=== PATIENT | male | born 1950 | race Caucasian/White ===

== ENCOUNTER 2020-01-31 14:56 | Outpatient (REF) | payer MEDICARE, SELFPAY ==
[2020-01-31 16:20] LABS: Alanine Aminotransferase 28 U/L (0-40); Albumin Level 4.5 g/dL (3.5-5.0); Alkaline Phosphatase 76 U/L (39-117); Anion Gap 13 (12-20); Aspartate Amino Transferase 21 U/L (5-37); Bilirubin Total 0.5 mg/dL (0.0-1.0); Blood Urea Nitrogen 20 mg/dL (9-16); Calcium 9.5 mg/dL (8.4-10.2); Carbon Dioxide 27 mmol/L (22-29); Chloride 105 mmol/L (96-108); Estimated Glomerular Filt Rate > 60; Glucose Random 124 mg/dL (60-115); Potassium 4.2 mmol/l (3.3-5.1); Sodium 141 mmol/L (135-145); Uric Acid 4.4 mg/dL (3.4-7.0)
== END 2020-01-31 14:57 | disposition home or self-care (01) ==
LOC: HO.LAB 14:56
PROVIDERS: PCP Internal Medicine; Visit Provider Student in an Organized Health Care Education/Training Program
DX: M10.9 Gout, unspecified (principal)
CPT/HCPCS: 80053; 84550

== ENCOUNTER → 2020-02-14 09:11 | Outpatient (BNVA) | payer MEDICARE, SELFPAY | PROVIDERS: PCP Internal Medicine; Referring Provider Internal Medicine; Visit Provider Student in an Organized Health Care Education/Training Program | DX: M1A.0620 Idiopathic chronic gout, left knee, without tophus (tophi) (principal) | CPT/HCPCS: 99213 ==

== ENCOUNTER 2020-11-04 10:22 | Outpatient (REF) | payer MEDICARE, SELFPAY ==
[2020-11-04 12:17] LABS: Uric Acid 4.1 mg/dL (3.4-7.0)
== END 2020-11-04 10:23 | disposition home or self-care (01) ==
LOC: HO.LAB 10:22
PROVIDERS: PCP Internal Medicine; Visit Provider Student in an Organized Health Care Education/Training Program
DX: M1A.0690 Idiopathic chronic gout, unspecified knee, without tophus (tophi) (principal)
CPT/HCPCS: 36415; 84550

== ENCOUNTER → 2020-11-12 08:55 | Outpatient (BNVA) | payer MEDICARE, SELFPAY | PROVIDERS: PCP Internal Medicine; Visit Provider Student in an Organized Health Care Education/Training Program | DX: M1A.0690 Idiopathic chronic gout, unspecified knee, without tophus (tophi) (principal) | CPT/HCPCS: 99212 ==

== ENCOUNTER 2021-01-30 14:01 | Outpatient (REF) | payer MEDICARE, SELFPAY ==
[2021-01-30 14:49] LABS: Alanine Aminotransferase 32 U/L (0-40); Albumin Level 4.4 g/dL (3.5-5.0); Alkaline Phosphatase 68 U/L (39-117); Anion Gap 12 (12-20); Aspartate Amino Transferase 27 U/L (5-37); Bilirubin Total 0.4 mg/dL (0.0-1.0); Blood Urea Nitrogen 18 mg/dL (9-16); Calcium 9.8 mg/dL (8.4-10.2); Carbon Dioxide 27 mmol/L (22-29); Chloride 106 mmol/L (96-108); Estimated Glomerular Filt Rate > 60; Glucose Random 163 mg/dL (60-115); Potassium 4.4 mmol/L (3.3-5.1); Sodium 141 mmol/L (135-145); Total Protein 6.9 g/dL (6.5-8.0)
== END 2021-01-30 14:02 | disposition home or self-care (01) ==
LOC: HO.LAB 14:01
PROVIDERS: PCP Internal Medicine; Visit Provider Nurse Practitioner Family
DX: M1A.0690 Idiopathic chronic gout, unspecified knee, without tophus (tophi) (principal)
CPT/HCPCS: 36415; 80053

== ENCOUNTER → 2021-11-10 08:51 | Outpatient (BNVA) | payer MEDICARE, SELFPAY | PROVIDERS: Visit Provider Nurse Practitioner Family | DX: M1A.0690 Idiopathic chronic gout, unspecified knee, without tophus (tophi) (principal) | CPT/HCPCS: 36415; 80053; 84550; 99212 ==

== ENCOUNTER 2021-11-10 09:54 | Outpatient (REF) | payer MEDICARE, SELFPAY ==
[2021-11-10 11:08] LABS: Alanine Aminotransferase 41 U/L (0-40); Albumin Level 4.7 g/dL (3.5-5.0); Alkaline Phosphatase 71 U/L (39-117); Anion Gap 13 (12-20); Aspartate Amino Transferase 30 U/L (5-37); Bilirubin Total 0.7 mg/dL (0.0-1.0); Blood Urea Nitrogen 18 mg/dL (9-16); Calcium 9.6 mg/dL (8.4-10.2); Carbon Dioxide 26 mmol/L (22-29); Chloride 105 mmol/L (96-108); Creatinine Clr Calc Pharmacy 78.8; Estimated Glomerular Filt Rate > 60; Glucose Random 128 mg/dL (60-115); Potassium 4.6 mmol/L (3.3-5.1); Sodium 139 mmol/L (135-145); Total Protein 7.4 g/dL (6.5-8.0); Uric Acid 3.9 mg/dL (3.4-7.0)
== END 2021-11-10 09:55 | disposition home or self-care (01) ==
LOC: HO.LAB 09:54
PROVIDERS: Visit Provider Nurse Practitioner Family
DX: Z13.89 Encounter for screening for other disorder (principal)
CPT/HCPCS: 36415; 80053; 84550

== ENCOUNTER 2022-09-07 13:29 | Outpatient (REF) | payer MEDICARE, SELFPAY ==
[2022-09-07 17:20] LABS: Anion Gap 14 (12-20); Blood Urea Nitrogen 14 mg/dL (9-16); Calcium 9.3 mg/dL (8.4-10.2); Carbon Dioxide 25 mmol/L (22-29); Chloride 106 mmol/L (96-108); Estimated Glomerular Filt Rate > 60; Glucose Random 188 mg/dL (60-115); Potassium 4.2 mmol/L (3.3-5.1); Sodium 141 mmol/L (135-145)
[2022-09-07 18:19] LABS: Uric Acid 3.8 mg/dL (3.4-7.0)
== END 2022-09-07 13:30 | disposition home or self-care (01) ==
LOC: HO.LAB 13:29
PROVIDERS: PCP Internal Medicine; Visit Provider Nurse Practitioner Family
DX: M1A.0690 Idiopathic chronic gout, unspecified knee, without tophus (tophi) (principal)
CPT/HCPCS: 36415; 80048; 84550

== ENCOUNTER 2022-12-10 07:22 | Outpatient (AMB) | payer MEDICARE, SELFPAY ==
--- NOTE | 2022-12-10 07:24 | A.OFFVIS_ITS ---
Intake Vital Signs 12/10/22 07:33 Height 5 ft 11.5 in Weight 222 lb 14.197 oz BMI 30.6 BP 112/66 Blood Pressure Location Rt brachial Position Sitting Pulse 73 Pulse Source Pulse Oximeter Temp 97 F Temp Source Skin Pulse Oximetry (%) 96 Oxygen Delivery Method Room Air Intake Visit Reasons: Gout Intake Note: Here for gout follow up. Distributing Clerk Required: No Accompanied by: Self / Same As Patient Allergies atorvastatin Allergy (Mild, Verified 12/10/22 07:26) Muscle cramps Medication List - Last Reconciled 12/10/22 by Dilan Shelley MD allopurinol 100 mg PO DAILY allopurinol 300 mg PO DAILY aspirin (Adult Low Dose Aspirin) 81 mg PO BID ergocalciferol (vitamin D2) 10 mcg PO DAILY fluoride (sodium) 1.1% (PreviDent 5000 Dry Mouth) dental DIRECTED gabapentin 200 mg PO isosorbide mononitrate ER 30 mg PO DAILY lisinopril 10 mg PO DAILY metformin ER 750 mg PO BID metoprolol succinate ER 100 mg PO BID naproxen sodium (Aleve) 220 mg PO BID PRN nitroglycerin 0 mg sublingual pilocarpine HCl 5 mg PO TID rosuvastatin 40 mg PO DAILY HPI HPI Comments History of Present Illness Details 72oM with gout presents for follow. Last seen by Lili Chavarria 11/13 On allopurinol 400 mg daily since 2016. Patient states that he started having gout attacks more than 25 years ago. It would affect his big toes, sometimes ankles rarely the knees and fingers. He has not had an attack in years. Has not been on colchicine in years. He follows with [facility] [place] for history of tongue cancer with resection in 2018 or 2019 and radiation at [facility]. Also has type 2 diabetes. [facility] Medical History Carotid stenosis Cervical radiculopathy GERD (gastroesophageal reflux disease) Gout H/O prostate cancer Squamous cell cancer of tongue Type 2 diabetes mellitus Surgical History H/O sinus surgery Hx of tonsillectomy S/P partial glossectomy Status post neck dissection Social History Household Members: Spouse Housing: House Alcohol intake: current Alcohol intake frequency: holidays/special occasions only Alcohol type: wine Patient Tobacco Use Status: Never used Tobacco Review of Systems Musc Denies arthralgias and Denies joint swelling Physical Exam Vital Signs: Last Vital Signs Temp 97 F 12/10/22 07:33 Pulse 73 12/10/22 07:33 BP 112/66 12/10/22 07:33 Pulse Ox 96 12/10/22 07:33 Oxygen Delivery Method Room Air 12/10/22 07:33 BMI result Body Mass Index 30.6 Const General: cooperative, healthy appearing and comfortable Nutritional Appearance: overweight Orientation/consciousness: patient oriented x3 Limitations: no limitations HEENT Head: Yes normocephalic and Yes atraumatic Mouth: moist mucous membranes Resp Effort & Inspection: normal respiratory effort and able to speak in complete sentences Auscultation: clear to auscultation bilaterally Cardio Rate: regular rate Neuro General: patient oriented x3 Extrem Other: Mild osteoarthritic changes of both hands with Bill's and Heberden's nodes and no synovitis No tophi noted Normal range of motion of both knees with no pain Assessment & Plan Assessment & Plan (1) Gout: Code(s): M10.9 - Gout, unspecified Qualifiers: Gout site: knee Gout etiology: idiopathic Chronicity: chronic Laterality: unspecified laterality Presence of tophus: without tophus Qualified Code(s): M1A.0690 - Idiopathic chronic gout, unspecified knee, without tophus (tophi) Plan: 72-year-old male with gout presents for follow-up. His gout is very well controlled on allopurinol 400 mg daily. Uric acid level less than 6. Continue allopurinol 400 mg daily Labs before next visit in 1 year. Plan I spent 15 minutes reviewing patient's chart, evaluating patient, ordering diagnostic workup, counseling patient and documenting in the chart Orders: Orders Comprehensive Met. Panel 11 Months M10.9 - Gout, unspecified Uric Acid 11 Months M10.9 - Gout, unspecified Coding Level of Care Code Est Pt Level 3 (14917) Diagnoses Gout M1A.0690 Gout site: knee Gout etiology: idiopathic Chronicity: chronic Laterality: unspecified laterality Presence of tophus: without tophus
[2022-12-10 07:33] VITALS: BP 112/66; PULSE 73; TEMP 36.1; O2SAT 96; BMI 30.6
== END 2022-12-10 07:51 | disposition home or self-care (01) ==
PROVIDERS: PCP Internal Medicine; Visit Provider Student in an Organized Health Care Education/Training Program
DX: M1A.0690 Idiopathic chronic gout, unspecified knee, without tophus (tophi) (principal)
CPT/HCPCS: 99213

== ENCOUNTER → 2022-12-10 07:22 | Outpatient (BNVA) | payer MEDICARE, SELFPAY | PROVIDERS: PCP Internal Medicine; Visit Provider Student in an Organized Health Care Education/Training Program | DX: M1A.0690 Idiopathic chronic gout, unspecified knee, without tophus (tophi) (principal); C02.9 Malignant neoplasm of tongue, unspecified | CPT/HCPCS: 99212 ==

== ENCOUNTER 2023-12-08 07:49 | Outpatient (AMB) | payer MEDICARE, SELFPAY ==
--- NOTE | 2023-12-08 07:52 | MHC.OFFVIS ---
Vital Signs 12/08/23 07:56 Height 5 ft 11.5 in Weight 220 lb 0.341 oz BMI 30.3 BP 112/62 Blood Pressure Location Rt brachial Position Sitting Pulse 72 Pulse Source Pulse Oximeter Pulse Oximetry (%) 97 Oxygen Delivery Method Room Air Intake Visit Reasons: Gout/CM Intake Note: Patient presents for Gout. Allergies atorvastatin Allergy (Mild, Verified 12/08/23 07:54) Muscle cramps Medication List - Last Reconciled 12/08/23 by Dilan Shelley MD allopurinol 100 mg PO DAILY allopurinol 300 mg PO DAILY aspirin (Adult Low Dose Aspirin) 81 mg PO BID ergocalciferol (vitamin D2) 10 mcg PO DAILY fluoride (sodium) 1.1% (PreviDent 5000 Dry Mouth) dental DIRECTED gabapentin 200 mg PO isosorbide mononitrate ER 30 mg PO DAILY lisinopril 10 mg PO DAILY metformin ER 750 mg PO BID metoprolol succinate ER 100 mg PO BID naproxen sodium (Aleve) 220 mg PO BID PRN nitroglycerin 0 mg sublingual pilocarpine HCl 5 mg PO TID rosuvastatin 40 mg PO DAILY HPI Comments Details: 73oM with gout presents for follow. Last seen 11/2022 On allopurinol 400 mg daily since 2017. He has not had an attack in years. Has not been on colchicine in years. States that he recently had injections for bilateral Dupuytren's contracture. Injections were helpful He follows with [facility] for history of tongue cancer with resection in 2018 or 2019 and radiation at [facility]. [facility] Medical History Dupuytren contracture of both hands Squamous cell cancer of tongue Cervical radiculopathy H/O prostate cancer GERD (gastroesophageal reflux disease) Type 2 diabetes mellitus Carotid stenosis Gout Surgical History Status post neck dissection S/P partial glossectomy H/O sinus surgery Hx of tonsillectomy Social History Household Members: Spouse Housing: House Alcohol intake: current Alcohol intake frequency: holidays/special occasions only Alcohol type: wine Patient Tobacco Use Status: Never used Tobacco Review of Systems Musc Denies arthralgias and Denies joint swelling Physical Exam Vital Signs: Last Vital Signs Pulse 72 12/08/23 07:56 BP 112/62 12/08/23 07:56 Pulse Ox 97 12/08/23 07:56 Oxygen Delivery Method Room Air 12/08/23 07:56 BMI result Body Mass Index 30.3 Const General: cooperative, healthy appearing and comfortable Nutritional Appearance: overweight Orientation/consciousness: patient oriented x3 Limitations: no limitations HEENT Head: Yes normocephalic and Yes atraumatic Mouth: moist mucous membranes Resp Effort & Inspection: normal respiratory effort and able to speak in complete sentences Auscultation: clear to auscultation bilaterally Cardio Rate: regular rate Neuro General: patient oriented x3 Extrem Other: Mild osteoarthritic changes of both hands with Bill's and Heberden's nodes and no synovitis No tophi noted Normal range of motion of both knees with no pain Assessment & Plan Assessment & Plan (1) Gout: Code(s): M10.9 - Gout, unspecified Category: Medical Qualifiers: Gout site: knee Gout etiology: idiopathic Chronicity: chronic Laterality: unspecified laterality Presence of tophus: without tophus Qualified Code(s): M1A.0690 - Idiopathic chronic gout, unspecified knee, without tophus (tophi) Plan: 73-year-old male with gout presents for follow-up. His gout is very well controlled on allopurinol 400 mg daily. Has not had any gout flare-ups in years. Check uric acid level today, and adjust allopurinol dose if needed Continue allopurinol 400 mg daily Labs before next visit in 1 year. Plan I spent 15 minutes reviewing patient's chart, evaluating patient, ordering diagnostic workup, counseling patient and documenting in the chart Orders: Orders Basic Metabolic Panel Today M1A.0690 - Idiopathic chronic gout, unspecified knee, without tophus (tophi) Basic Metabolic Panel 1 Year M1A.0690 - Idiopathic chronic gout, unspecified knee, without tophus (tophi) Uric Acid 1 Year M1A.0690 - Idiopathic chronic gout, unspecified knee, without tophus (tophi) Coding Level of Care Code Est Pt Level 3 (14215) Diagnoses Idiopathic chronic gout of knee without tophus, unspecified laterality M1A.0690 Gout site: knee Gout etiology: idiopathic Chronicity: chronic Laterality: unspecified laterality Presence of tophus: without tophus
[2023-12-08 07:56] VITALS: BP 112/62; PULSE 72; O2SAT 97; BMI 30.3
== END 2023-12-08 08:06 | disposition home or self-care (01) ==
PROVIDERS: PCP Internal Medicine; Visit Provider Student in an Organized Health Care Education/Training Program
DX: M1A.0690 Idiopathic chronic gout, unspecified knee, without tophus (tophi) (principal)
CPT/HCPCS: 99213

== ENCOUNTER → 2023-12-08 07:49 | Outpatient (BNVA) | payer MEDICARE, SELFPAY | PROVIDERS: PCP Internal Medicine; Visit Provider Student in an Organized Health Care Education/Training Program | DX: M1A.0690 Idiopathic chronic gout, unspecified knee, without tophus (tophi) (principal); Z79.899 Other long term (current) drug therapy | CPT/HCPCS: 36415; 80048; 84550; 99212 ==

== ENCOUNTER 2023-12-08 08:13 | Outpatient (REF) | payer MEDICARE, SELFPAY ==
[2023-12-08 11:44] LABS: Anion Gap 16 (12-20); Blood Urea Nitrogen 19 mg/dL (9-16); Calcium 9.7 mg/dL (8.4-10.2); Carbon Dioxide 21 mmol/L (22-29); Chloride 104 mmol/L (96-108); Estimated Glomerular Filt Rate > 60; Glucose Random 317 mg/dL (60-115); Sodium 137 mmol/L (135-145); Uric Acid 3.7 mg/dL (3.4-7.0)
== END 2023-12-08 08:14 | disposition home or self-care (01) ==
LOC: HO.10HDL 08:13
PROVIDERS: Visit Provider Student in an Organized Health Care Education/Training Program
DX: Z13.89 Encounter for screening for other disorder (principal)
CPT/HCPCS: 36415; 80048; 84550

== ENCOUNTER 2024-11-29 14:32 | Outpatient (REF) | payer MEDICARE, SELFPAY ==
--- OUTSIDE RECORDS SUMMARY | 2024-11-29 14:36 | XMS_ITS | Encounter Summary ---
Author Organization [facility] Address [address] [place] [address] Phone Care Team Providers Care Manager Php Name Role Phone Amilcar Yoder MD Unavailable Sangita Aden MD, MPH Unavailable [phone] Reinaldo Shields MD Unavailable [phone] Izzy Tsai MD Primary Care Provide r Jone Brewer MD Unavailable [phone] MS [facility]-SPECIAL EDUCATION BUS DRIVER Unavailable [phone] Izzy Tsai MD Primary Care Provide r Encounter Details Date Type Department Care Team (Late st Contact Info) Description 11/03/2018 Transcribe Orders Kristin Lank Imaging Department, [facility] [place], Radiography [address], [address] [place] [address] Jone Brewer MD [address] [place] [phone] Social History Tobacco Use Types Packs/Day Years Used Date Smoking Tobacco: Never Smokeless Tobacco: Never Alcohol Use Standard Drinks/Week Comments Yes 0 (1 standard drink = 0.6 oz pur e alcohol) 3 glasses of wine a year Sex and Gender Information Value Date Recorded Sex Assigned at Male 02/03/2018 8:35 AM EDT Legal Sex Male 11:14 AM EDT Gender Identity Male 02/03/2018 8:35 AM EDT Sexual Orientation Straight 02/03/2018 8: 35 AM EDT documented as of this encounter Plan of Treatment Upcoming Encounters Date Type Department Care Team ([facility] st Contact Info) Description 02/15/2025 8:30 AM EDT Office Visit [facility], [address], [address] [place] [address] Lisa Mohan MD, FACS [address] [place] [address] [email or web address] 08/15/2025 8:00 AM EDT Office Visit Oral Medicine, [address], [address] [place] [address] Dilip Marsh DMD, PhD [address] [place], [place] [id number] [email or web address] documented as of this encounter Visit Diagnoses Not on filedocumented in this encounter Care Teams Manager Php Relationship Specialty Start Date End Date Izzy Tsai MD [address] [place] [address] PCP - General Internal Medicine 01/20/18 11/25/21 Izzy Tsai MD [address] [place] [address] PCP - General Internal Medicine 11/26/21 Amilcar Yoder MD [address] [place] [address] Dr GTZ [address] [place] [address] Referring Physician Otolaryngology 01/11/18 Sangita Aden MD, MPH [address] [place] [address] [email or web address] Radiation Oncology 01/19/18 Reinaldo Shields MD [address] [place] [phone] [email or web address] Primary Oncologist Medical Oncology 01/20/18 Jone Brewer MD [address] [place] [phone] Otolaryngology 02/14/18 Flaca Jimenez MS CCC-SPECIAL EDUCATION BUS DRIVER [address] [place] [address] [email or web address] Speech Language Pathologist Speech Language Pathologist 02/14/18 documented as of this encounter Additional Source Comments The information contained in this document represents components of the legal health record. It is not the complete legal health record.[facility]
[2024-11-29 14:44] LABS: MANUAL DIFF FLAG NO
[2024-11-29 16:05] LABS: Hematocrit 37.1 % (42.0-52.0); Hemoglobin 13.0 g/dl (14.0-18.0); Imm Gran Abs Auto 0.03 X10*3/uL (0.00-0.03); Imm Gran Pct Auto 0.5 % (0.0-0.4); Lymphocytes Absolute Auto 1.3 X10*3/uL (1.2-4.9); Mean Corpuscular HGB Conc 35.0 g/dl (31.0-36.0); Mean Corpuscular Hemoglobin 32.8 pg (27.0-33.0); Mean Corpuscular Volume 93.7 fL (80.0-98.0); NRBC Abs Auto 0.020 X10*3/uL (0.0-0.012); NRBC Pct Auto 0.3 /100WBC (0.0-0.2); Platelet Count 281 X10*3/uL (160-400); Red Blood Count 3.96 X10*6/uL (4.60-5.80); White Blood Count 6.6 X10*3/uL (4.8-10.8)
[2024-11-29 16:28] LABS: Estimated Glomerular Filt Rate 56; Uric Acid 3.5 mg/dL (3.4-7.0)
== END 2024-11-29 14:33 | disposition home or self-care (01) ==
LOC: HO.LAB 14:32
PROVIDERS: PCP Internal Medicine; Visit Provider Student in an Organized Health Care Education/Training Program
DX: R76.0 Raised antibody titer (principal); M1A.0690 Idiopathic chronic gout, unspecified knee, without tophus (tophi)
CPT/HCPCS: 36415; 82565; 84550; 85025; 85652; 86140

== ENCOUNTER 2024-12-05 08:20 | Outpatient (AMB) | payer MEDICARE, SELFPAY ==
--- NOTE | 2024-12-05 08:23 | A.OFFVIS_ITS ---
Vital Signs 12/05/24 08:29 Height 5 ft 11.5 in Weight 222 lb 14.197 oz BMI 30.6 BP 130/64 Blood Pressure Location Lt brachial Position Sitting Pulse 67 Pulse Source Pulse Oximeter Pulse Oximetry (%) 95 Oxygen Delivery Method Room Air Intake Visit Reasons: Gout Intake Note: Patient presents for Gout follow up. Allergies atorvastatin Allergy (Mild, Verified 12/05/24 08:27) Muscle cramps HPI Comments Details: Patient is a 74-year-old male with hx of tongue cancer s/p resection and radiation (follows at [facility]), hypertension, hyperlipidemia complicated by coronary artery disease and carotid stenosis and non crystal proven non tophaceous gout here today for follow up Interval History: Patient last seen 12/08/[address] Shelley - On Allopurinol 400mg daily - Doing well without any gout flares Today - On allopurinol 400mg daily - No gout flares since last visit - Normally got gout flares in the 1st MTP, ankles, knees, hands and wrists Rheumatologic History: Non crystal proven gout - Sites affected: 1st MTP, ankles, knees, hands and wrists - Allopurinol - Discontinued colchicine Current Rheumatology Medication(s): Allopurinol 400mg PFSH Medical History Dupuytren contracture of both hands Squamous cell cancer of tongue Cervical radiculopathy H/O prostate cancer GERD (gastroesophageal reflux disease) Type 2 diabetes mellitus Carotid stenosis Gout Surgical History Status post neck dissection S/P partial glossectomy H/O sinus surgery Hx of tonsillectomy Social History Household Members: Spouse Housing: House Alcohol intake: current Alcohol intake frequency: holidays/special occasions only Alcohol type: wine Patient Tobacco Use Status: Never used Tobacco Review of Systems Const Details: Review of Systems Constitutional: Denies fever, chills, weight loss ENT: Denies vision changes, eye pain or eye redness, dental caries, dry mouth GI: Denies nausea, vomiting, diarrhea, abdominal pain, change in BM Pulm: Denies SOB, ALFARO, hemoptysis, wheezing Cards: Denies chest pain, palpitations Skin: Denies Raynaud's, rash, nail changes, photosensitivity, TOOTH GRINDER: Denies headaches, weakness, paresthesias, recurrent falls MSK: as per HPI All other systems reviewed and are unremarkable except noted above Physical Exam Exam Exam: Vital signs reviewed Physical Examination CONSTITUITIONAL Patient alert and cooperative. Well appearing and in no apparent painful distress MSK Hands * Right Hand: Able to make a fist. No swelling or tenderness to palpation of these joints. * Left Hand: Able to make a fist. No swelling or tenderness to palpation of these joints. * Herbedens nodes noted bilaterally Wrists * Right Wrist: Full ROM. 70 degrees of wrist flexion, 80 degrees of wrist extension. No swelling or TTP * Left Wrist: Full ROM. 70 degrees of wrist flexion, 80 degrees of wrist extension. No swelling or TTP Elbows * Right Elbow: Full ROM. No swelling or TTP. No TTP of the medial and lateral epicondyles * Left Elbow: Full ROM. No swelling or TTP. No TTP of the medial and lateral epicondyles Shoulders * Right shoulder: Full ROM. No swelling noted. No TTP of the AC joint, subacromial bursa or posterior shoulder * Left shoulder: Full ROM. No swelling noted. No TTP of the AC joint, subacromial bursa or posterior shoulder Knees * Right knee: Full ROM. No swelling noted. No TTP of the knee joint lie or pes anserine bursa. Crepitations felt * Left knee: Full ROM. No swelling noted. No TTP of the knee joint lie or pes anserine bursa. Ankles * Right ankle: Good ankle dorsiflexion and plantar flexion. No swelling. No TTP of the ankle joint * Left ankle: Good ankle dorsiflexion and plantar flexion. No swelling. No TTP of the ankle joint Feet * Right foot: Negative squeeze test * Left foot: Negative squeeze test Tender points? * No tenderness to palpation of the bilateral trapezius, supraspinatus, anterior costochondral junctions, bilateral suboccipital muscle insertions SKIN No rashes No tophi noted Vital Signs: Last Vital Signs Pulse 67 12/05/24 08:29 BP 130/64 12/05/24 08:29 Pulse Ox 95 12/05/24 08:29 Oxygen Delivery Method Room Air 12/05/24 08:29 BMI result Body Mass Index 30.6 Results Reviewed Results Reviewed: Laboratory Tests 11/14/18 08/15/24 08/07/25 13:32 08:20 14:43 WBC 6.6 RBC 3.96 L Hgb 13.0 L Hct 37.1 L Plt Count 281 ESR 22 H 7 Creatinine 1.26 Estimated GFR > 60 56 Uric Acid 3.5 C-Reactive Protein < 0.10 Assessment & Plan Assessment & Plan (1) Gout: Code(s): M10.9 - Gout, unspecified Category: Medical Qualifiers: Chronicity: chronic Gout etiology: idiopathic Gout site: knee Laterality: unspecified laterality Presence of tophus: without tophus Qualified Code(s): M1A.0690 - Idiopathic chronic gout, unspecified knee, without tophus (tophi) Plan: #Gout Patient is a 74-year-old male with non crystal proven non tophaceous gout here today for follow up. Currently doing well without any gout flares on allopurinol. UA at goal Plan - Allopurinol 400mg - UA goal <6 - RTC 1 year - Labs before visit: CMP, Uric Acid (2) Encounter for monitoring allopurinol therapy: Code(s): Z51.81 - Encounter for therapeutic drug level monitoring; Z79.899 - Other group home (current) drug therapy Plan: #Long-term Current Use of Allopurinol Risks and benefits of allopurinol discussed with patient Benefits include decreased gout flares, remission of gout and reduction of tophi Risks include allopurinol hypersensitivity syndrome which is a severe cutaneous adverse reaction associated with allopurinol use particularly in patients who are HLA B*5801 positive, increased transaminases, GI upset including diarrhea, nausea and vomiting, and other dermatologic manifestations. 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
--- OUTSIDE RECORDS SUMMARY | 2024-12-05 08:28 | XMS_ITS | Encounter Summary ---
Author Organization [facility] Address [address] [place] [address] Phone Care Team Providers Care Plywood Layup Line Back Feeder Name Role Phone Amilcar Yoder MD Unavailable Sangita Aden MD, MPH Unavailable [phone] Reinaldo Shields MD Unavailable [phone] Izzy Tsai MD Primary Care Provide r Jone Brewer MD Unavailable [phone] MS [facility] PAINTER Unavailable [phone] Izzy Tsai MD Primary Care Provide r Encounter Details Date Type Department Care Team (Late st Contact Info) Description 11/03/2018 Transcribe Orders Kristin Lank Imaging Department, [facility] [place], Radiography [address] [facility] [place] [address] Jone Brewer MD [address] [place] [phone] Social History Tobacco Use Types Packs/Day Years [...] Upcoming Encounters Date Type Department Care Team ([facility] st Contact Info) Description 02/15/2025 8:30 AM EDT Office Visit [facility], [address], [address] [place] [address] Lisa Mohan MD, FACS [address] [place] [phone] [email or web address] 08/15/2025 8:00 AM EDT Office Visit Oral Medicine, [address], [address] [place] [address] Dilip Marsh DMD, PhD [address] [place], [place] [id number] [email or web address] documented as of this encounter Visit Diagnoses Not on filedocumented in this encounter Care Teams Plywood Layup Line Back Feeder Relationship Specialty Start Date End Date Izzy Tsai MD [address] [place] [id number] PCP - General Internal Medicine 01/20/18 11/25/21 Izzy Tsai MD [address] [place] [address] PCP - General Internal Medicine 11/26/21 Amilcar Yoder MD [address] [place] [address] Dr GTZ [address] [place] [address] Referring Physician Otolaryngology 01/11/18 Sangita Aden MD, MPH [address] [place] [address] [email or web address] Radiation Oncology 01/19/18 Reinaldo Shields MD [address] [place] [phone] [email or web address] Primary Oncologist Medical Oncology 01/20/18 Jone Brewer MD [address] [place] [address] Otolaryngology 02/14/18 Flaca Jimenez MS CCC-MIRROR PAINTER [address] [place] [address] [email or web address]. [email or web address] Speech Language Pathologist Speech Language Pathologist 02/14/18 documented as of this encounter Additional Source Comments The information contained in this document represents components of the legal health record. It is not the complete legal health record.[facility]
[2024-12-05 08:29] VITALS: BP 130/64; PULSE 67; O2SAT 95; BMI 30.6
== END 2024-12-05 08:40 | disposition home or self-care (01) ==
LOC: HO.RHES 08:21
PROVIDERS: PCP Internal Medicine; Visit Provider Student in an Organized Health Care Education/Training Program
DX: M1A.0690 Idiopathic chronic gout, unspecified knee, without tophus (tophi) (principal); Z51.81 Encounter for therapeutic drug level monitoring; Z79.899 Other long term (current) drug therapy
CPT/HCPCS: 99213; G2211

== ENCOUNTER → 2024-12-05 08:20 | Outpatient (BNVA) | payer MEDICARE, SELFPAY | PROVIDERS: PCP Internal Medicine; Visit Provider Student in an Organized Health Care Education/Training Program | DX: Z51.81 Encounter for therapeutic drug level monitoring (principal); Z79.899 Other long term (current) drug therapy | CPT/HCPCS: 99212 ==